=== PATIENT | male | born 1955 | race Caucasian/White ===

== ENCOUNTER 2025-08-31 17:48 | Emergency (ER) | payer SELFPAY ==
[2025-08-31 18:02] VITALS: BP 156/81
--- NOTE | 2025-08-31 19:08 | ED.GENMED ---
History of Present Illness
General
Chief Complaint: Musculo-Skeletal Complaint
Source: patient
Time Seen by Provider: 08/31/25 18:34
History of Present Illness
History of Present Illness:
69-year-old male presenting to the emergency department for evaluation of of right-sided shoulder pain and left knee pain that have been ongoing for a couple of weeks, left knee pain for longer. Patient states that he went to the orthopedic
providers at [facility] for the right shoulder pain was recommended to have an MRI but due to potential metal exposure needs to have an x-ray prior to the MRI being completed. Secondary concern of nontraumatic left knee pain that has been off and on
for 'a while but worse over the last 2 months. Family who is with the patient noted that he seems to have trouble sleeping at night secondary to the pain as well as having ambulating. No reported traumas, no fevers or infectious symptoms.
Past History
Past History
ED Past Medical History: None
ED Past Surgical History: None
Social History
Tobacco: Non-smoker
Alcohol: None
Drug: None
Personal: Single
Living: with family
Review of Systems
Review of Systems
All Other Systems: ROS reviewed and negative except as documented in HPI and ROS
Phy Exam
Physical Exam
Physical Exam:
GENERAL: Alert , in no apparent distress
EYE: conjunctiva clear
Head: Normocephalic atraumatic
NECK: Supple,
ENT: mmm.
LUNGS: no acute respiratory distress
NEUROLOGICAL: Alert and oriented
SKIN: Warm and dry, skin intact.
MUSCULOSKELETAL: well perfused. Right shoulder in sling. Diminished range of motion secondary to pain. Mild tenderness over the humeral head. Extremities otherwise warm well-perfused neurovascularly intact. Left knee with mild soft tissue
swelling but no overlying erythema, ecchymosis, abrasions or lacerations. Patient does allow for normal range of motion.
PSYCH: Normal and appropriate interaction.
Scores
Heart Failure Risk
Heart Failure Risk Score: Not Applicable
Heart Score for Chest Pain Patients
STEMI patient?: Not applicable
Withdrawal Assessment of Alcohol
Withdrawal Assessment Completed?: Not applicable
Course
Vital Signs
Initial and Last Documented VS:
Initial Vital Signs
Temp Pulse Resp BP Pulse Ox
98 F 97 16 156/81 100
08/31/25 18:02 08/31/25 18:02 08/31/25 18:02 08/31/25 18:02 08/31/25 18:02
Last Documented Vital Signs
Temp Pulse Resp BP Pulse Ox
98 F 97 16 156/81 100
08/31/25 18:02 08/31/25 18:02 08/31/25 18:02 08/31/25 18:02 08/31/25 19:09
MDM/Problems Addressed
Differential Diagnosis Includes:
Shoulder sprain
Rotator cuff injury
I do not have concern for fracture or dislocation
Gout
I do not have concern for septic joint
MDM/Problems Addressed:
69-year-old male presenting to the ER for 2 separate musculoskeletal injuries. Patient has seen orthopedics for right shoulder injury and is scheduled to undergo MRI however needs a x-ray prior to ensure no metal. Patient's knee pain has been
ongoing for many months making it very unlikely that this is being caused by infectious etiology. I did offer imaging with an x-ray however patient declined. I did also discuss initiating the patient on a steroid taper but he preferred to wait for
further instruction with his orthopedic team. At this time it is reasonable for patient to be discharged home
*Pulse Oximetry
SaO2: 100
Oxygen Mode of Delivery: Room air
Patient hypoxic: no
*Critical Care Note
Total Time (30-74mins, 75-104mins- exclusive of procedures): Not Applicable
ED Attending Note
-
Portions of this chart may have been created with voice recognition software.� Occasional wrong word or��sound alike� substitutions may have occurred due to the inherent limitations of voice recognition software.
Discharge Plan
Departure
Patient Disposition: Home (Routine Discharge)
Date of Disposition: 08/31/25
Time of Disposition: 19:08
Patient with high blood pressure during this ER visit?: Yes
Discharge Problem:
Pain in right shoulder, Knee pain, left
Instructions: Shoulder Sprain ED
Referrals:
Maggy Martins CRNP [Family Provider, General]
Interventions
Interventions:
*Risk Screen - Suicide Last Done: 08/31/25 18:02
*General Assessment Last Done: 08/31/25 19:06
*Neglect/Abuse Screening Last Done: 08/31/25 18:02
*ED COVID-19 Vaccine History Last Done: 08/31/25 19:06
*ED Influenza Vaccine History Last Done: 08/31/25 19:06
[facility] Fall Risk Assessment Tool Last Done: 08/31/25 19:16
*Nursing Disposition Last Done: 08/31/25 19:17
ED-Musculoskeletal Assessment Last Done: 08/31/25 19:16
Discharge Date and Time
Discharge Date/Time: 08/31/25 19:21
Print Language: PERSIAN
== END 2025-08-31 19:21 | disposition home or self-care (01) ==
LOC: EMR 17:48
PROVIDERS: EMERGENCY PHYSICIAN Emergency Medicine; FAMILY PHYSICIAN Nurse Practitioner Adult Health
DX: M25.511 Pain in right shoulder (principal); M25.562 Pain in left knee
CPT/HCPCS: 99282